=== PATIENT | male | born 1975 | race African-American/Black ===

== ENCOUNTER 2016-12-25 20:21 | Emergency (ER) | payer OTHER ==
[2016-12-25 20:27] VITALS: BP 147/91; PULSE 94; TEMP 98.4; BMI 30.6
[2016-12-25] MEDS ORDERED: ALBUTEROL SO4 2.5/IPRATROPIUM 0.5 INH SOL 3 ML VIAL.NEB. NEB ONE ×2 (20:57)
--- NOTE | 2016-12-25 21:24 | PDOC ---
History of Present Illness - General Chief Complaint: Shortness of Breath Stated Complaint: SHORTNESS OF BREATH Time Seen by Provider: 12/25/16 20:45 - History of Present Illness Initial Comments: 12/25/16 21:17 CHIEF COMPLAINT: HISTORY OF PRESENT ILLNESS: 41 yo M with hx of asthma and "reflux" presents [facility] with cough x 1 day and sneezing x 2 days. Patient denies any fever, chills, nausea, vomiting, diarrhea but states he is "very short of breath." PAST MEDICAL HISTORY: FAMILY HISTORY: Denies SOCIAL HISTORY:Denies tobacco, alcohol, illicit drug use. SURGICAL HISTORY: Denies ALLERGIES: No known drug allergies REVIEW OF SYSTEMS General/Constitutional: Denies fever or chills. Denies weakness, weight change. HEENT: Denies change in vision. Denies ear pain or discharge. Denies sore throat. Cardiovascular: Denies chest pain. Respiratory: Cough, wheezing, SOB x 1 day. Denies hemoptysis. Gastrointestinal: Denies nausea, vomiting, diarrhea. PHYSICAL EXAM General Appearance: Well-appearing, appropriately dressed. No apparent distress , no intoxication. HEENT: EOMI, PERRLA, normal ENT inspection, normal voice, TMs normal, pharynx normal. No conjunctival pallor. No photophobia, scleral icterus. Neck: Supple. Trachea midline. No tenderness, rigidity, carotid bruit, stridor , lymphadenopathy, or thyromegaly. Respiratory/Chest: Slight expiratory wheeze to LLL. No chest tenderness, respiratory distress, accessory muscle use. No crackles, rales, rhonchi, stridor , dullness. Cardiovascular: RRR. S1, S2. No JVD, murmur, bradycardia, tachycardia. Vascular Pulses: Dorsalis-Pedis (R): 2+, Dorsalis-Pedis (L): 2+ Gastrointestinal/Abdominal: Normal bowel sounds. Abdomen soft, non-distended. No tenderness or rebound tenderness. No organomegaly, pulsatile mass, guarding , hernia, hepatomegaly, splenomegaly. Lymphatic: No adenopathy, tenderness. Musculoskeletal/Extremities: Normal inspection. FROM of all extremities, normal capillary refill. Pelvis Stable. No CVA tenderness. No tenderness to extremities, pedal edema, swelling, erythema or deformity. Integumentary: Appropriate color, dry, warm. No cyanosis, erythema, jaundice or rash Neurologic: process plant operator II-XII intact. Fully oriented, alert. Appropriate mood/affect. Motor strength 5/5. No appreciable EOM palsy, facial droop or sensory deficit. Past History - Past Medical History Allergies/Adverse Reactions: Allergies Allergy/AdvReac Type Severity Reaction Status Date / Time No Known Allergies Allergy Verified 12/25/16 20:28 Home Medications: Ambulatory Orders Albuterol Sulfate Inhaler - [Ventolin HFA Inhaler -] 1 - 2 inh PO Q4H PRN #1 inhaler 12/25/16 Dextromethorphan HBr [Robitussin] 15 mg PO QID PRN #30 capsule 12/25/16 Loratadine [Claritin] 10 mg PO DAILY #30 tablet 12/25/16 Asthma: Yes (as a child) GI Disorders: Yes (acid reflux) HTN: Yes (non medicated) - Suicide/Smoking/Psychosocial Hx Smoking History: Current every day smoker Number of Cigarettes Smoked Daily: 2 Information on smoking cessation initiated: No *Physical Exam - Vital Signs Last Vital Signs Temp Pulse Resp BP Pulse Ox 98.4 F 94 H 18 147/91 96 12/25/16 20:23 12/25/16 20:23 12/25/16 20:23 12/25/16 20:23 12/25/16 20:23 ED Treatment Course - Medications Given in the ED: ED Medications Discontinued Medications Generic Name Dose Route Start Last Admin Trade Name Freq PRN Reason Stop Dose Admin Albuterol/Ipratropium 1 amp 12/25/16 20:57 12/25/16 21:02 Duoneb - NEB 12/25/16 20:58 1 amp ONCE ONE Administration *DC/Admit/Observation/Transfer Diagnosis at time of Disposition: Cold Asthma Qualifiers: Asthma severity: mild intermittent Asthma complication type: with acute exacerbation Qualified Code(s): J45.21 - Mild intermittent asthma with (acute) exacerbation - Discharge Dispostion Disposition: HOME Condition at time of disposition: Stable - Prescriptions Prescriptions: Loratadine [Claritin] 10 mg PO DAILY #30 tablet Dextromethorphan HBr [Robitussin] 15 mg PO QID PRN #30 capsule PRN Reason: Cough Albuterol Sulfate Inhaler - [Ventolin HFA Inhaler -] 1 - 2 inh PO Q4H PRN #1 inhaler PRN Reason: Short Of Breath/Wheezing - Patient Instructions Printed Discharge Instructions: DI for Asthma -- Adult, DI for Cough -- Adult Additional Instructions: Please take medications as prescribed and follow up with a primary care doctor for reevaluation of your asthma. If you develop any new shortness of breath, chest pain, fever, chills, vomiting, diarrhea, or any new or worsening symptoms , please return to the ER.
== END 2016-12-25 21:45 | disposition home or self-care (01) ==
LOC: JERFT 20:21
PROC: 3E0F7GC Introduction of Other Therapeutic Substance into Respiratory Tract, Via Natural or Artificial Opening (ICD-10-PCS; principal; 2016-12-25)
DX: J45.21 Mild intermittent asthma with (acute) exacerbation (principal); F17.210 Nicotine dependence, cigarettes, uncomplicated; K21.9 Gastro-esophageal reflux disease without esophagitis
CPT/HCPCS: 87804; 94640; 99281-25

== ENCOUNTER 2019-05-22 00:23 | Emergency (ER) | payer OTHER ==
[2019-05-22 00:32] VITALS: TEMP 97.8; BMI 28.2
--- NOTE | 2019-05-22 00:58 | PDOC ---
History of Present Illness - General Chief Complaint: Vomiting/Diarrhea Stated Complaint: VOMITING,DIARHHEA,BLACK STOOL History Source: Patient Exam Limitations: No Limitations - History of Present Illness Initial Comments: 05/22/19 01:00 pmhx": asthma GERD and restless leg syndrome N/V/D this morning. vomit x9. color of vomit yellow quanity getting smaller. Past History - Past Medical History Allergies/Adverse Reactions: Allergies Allergy/AdvReac Type Severity Reaction Status Date / Time No Known Allergies Allergy Verified 12/25/16 20:28 Home Medications: Ambulatory Orders Albuterol Sulfate Inhaler - [Ventolin HFA Inhaler -] 1 - 2 inh PO Q4H PRN #1 inhaler 12/25/16 Dextromethorphan HBr [Robitussin] 15 mg PO QID PRN #30 capsule 12/25/16 Loratadine [Claritin] 10 mg PO DAILY #30 tablet 12/25/16 Asthma: Yes (as a child) COPD: No GI Disorders: Yes (acid reflux) HTN: Yes (non medicated) - Psycho Social/Smoking Cessation Hx Smoking History: Never smoked Number of Cigarettes Smoked Daily: 2 *Physical Exam - Vital Signs Last Vital Signs Temp Pulse Resp BP Pulse Ox 97.8 F 98 H 18 153/98 99 05/22/19 00:29 05/22/19 00:29 05/22/19 00:29 05/22/19 00:29 05/22/19 00:29 Discharge - Follow up/Referral Referrals: Renata Pierce MD [Primary Care Provider] - - Patient Discharge Instructions - Post Discharge Activity
[2019-05-22] MEDS ORDERED: FAMOTIDINE 20 MG/50 ML IVPB 50 ML IVPB ONE (01:24)
[2019-05-22] MEDS ORDERED: ONDANSETRON 4 MG/2 ML VIAL IVPUSH ONE ×2 (01:24→04:16)
[2019-05-22] MEDS ORDERED: SODIUM CHLORIDE 0.9% 1000 ML INFUS.BAG IV ONE ×2 (01:24→04:16)
[2019-05-22] MEDS ORDERED: ONDANSETRON 4 MG/2 ML VIAL ONE ×2 (01:34→04:29)
[2019-05-22] MEDS ORDERED: FAMOTIDINE 20 MG/50 ML IVPB 20 MG/50 ML MG IVPB ONE (01:39)
--- NOTE | 2019-05-22 01:39 | PDOC ---
History of Present Illness - General Chief Complaint: Vomiting/Diarrhea Stated Complaint: VOMITING,DIARHHEA,BLACK STOOL Time Seen by Provider: 05/22/19 01:18 History Source: Patient Exam Limitations: No Limitations - History of Present Illness Initial Comments: 05/22/19 01:29 43M with a past medical history of asthma, restless leg syndrome, nausea, vomiting, diarrhea for two days. The patient states that hes had 8 to 12 pounds of bloody not bilious vomiting. And, he has had three episodes of watery diarrhea. She try taking Pepto-Bismol for the diarrhea, and then noticed that his last bout of diarrhea was darker than the prior. Denies any blood and his stool. The patient also admits to a syncopal episode today as he was going to the bathroom, felt lightheaded and diaphoretic, and had "vision closing" and syncopized. He denies a headache or midline spine tenderness. Past History - Past Medical History Allergies/Adverse Reactions: Allergies Allergy/AdvReac Type Severity Reaction Status Date / Time No Known Allergies Allergy Verified 12/25/16 20:28 Home Medications: Ambulatory Orders Albuterol Sulfate Inhaler - [Ventolin HFA Inhaler -] 1 - 2 inh PO Q4H PRN #1 inhaler 12/25/16 Dextromethorphan HBr [Robitussin] 15 mg PO QID PRN #30 capsule 12/25/16 Loratadine [Claritin] 10 mg PO DAILY #30 tablet 12/25/16 Ondansetron [Zofran *Odt*] 4 mg SL BID #14 od.tablet 05/22/19 Asthma: Yes (as a child) COPD: No GI Disorders: Yes (acid reflux) HTN: Yes (non medicated) - Psycho Social/Smoking Cessation Hx Smoking History: Never smoked Number of Cigarettes Smoked Daily: 2 Review of Systems - Review of Systems Able to Perform ROS?: Yes Comments:: 05/22/19 02:17 GENERAL/CONSTITUTIONAL: No fever or chills. No weakness. HEAD, EYES, EARS, NOSE AND THROAT: No change in vision. No ear pain or discharge. No sore throat. CARDIOVASCULAR: No chest pain, palpitations, or lightheadedness. RESPIRATORY: No cough, wheezing, shortness of breath, or hemoptysis. GASTROINTESTINAL: + for nausea, vomiting, diarrhea. No abdominal pain or constipation. GENITOURINARY: No dysuria, frequency, hematuria, or change in urination. MUSCULOSKELETAL: + for restless legs. No joint or muscle swelling or pain. No neck or back pain. SKIN: No rash or lesions. NEUROLOGIC: No headache, numbness, tingling, focal weakness, loss of consciousness, or change in strength/sensation. Is the patient limited Yakut proficient: No *Physical Exam - Vital Signs Last Vital Signs Temp Pulse Resp BP Pulse Ox 97.8 F 98 H 18 153/98 99 05/22/19 00:29 05/22/19 00:29 05/22/19 00:29 05/22/19 00:29 05/22/19 00:29 - Physical Exam 05/22/19 02:18 GENERAL: Well developed, well nourished. Awake and alert. No acute distress. HEENT: Normocephalic, atraumatic. Hearing grossly normal. Dry mucous membranes. PERRLA, EOMI. No conjunctival pallor. Sclera are non-icteric. NECK: Supple. Full ROM. No JVD. CARDIOVASCULAR: Regular rate and rhythm. No murmurs, rubs, or gallops. PULMONARY: No evidence of respiratory distress. Lungs clear to auscultation bilaterally. No wheezing, rales, or rhonchi. ABDOMINAL: Soft. Non-tender. Non-distended. No rebound or guarding. GENITOURINARY: No CVA tenderness bilaterally. MUSCULOSKELETAL: Normal range of motion at all joints. No bony deformities or tenderness. EXTREMITIES: No cyanosis. No clubbing. No edema. No calf tenderness or swelling. SKIN: Warm and dry. Normal capillary refill. No rashes. No jaundice. NEUROLOGICAL: Alert, awake, appropriate. Cranial nerves 2-12 grossly intact. Normal speech. Gait is normal without ataxia. PSYCHIATRIC: Cooperative. Good eye contact. Appropriate mood and affect. ED Treatment Course - LABORATORY CBC & Chemistry Diagram: 05/22/19 01:32 05/22/19 01:32 Medical Decision Making - Medical Decision Making 05/22/19 02:19 43M who presents with nausea, vomiting, diarrhea, who presents after having a syncopal episode. Treating symptomatically and reassessing. Pt well appearing. Syncopal episode at approx 2330. 05/22/19 04:14 CBC, CMP, Trop negative. EKG unremarkable. CTH pending. Pt did not have improvement on nausea w/ zofran. Reglan given w/ improvement. Pt has no focal neurologic deficits. Pt admitted to worsening of nausea. Will give zofran. 05/22/19 06:17 CTH negative. Pt tolerating PO and ambulating. Pending repeat troponin and d/c if negative. 05/22/19 06:43 Repeat trop negative. Will d/c with PCP f/u. Discharge - Discharge Information Problems reviewed: Yes Clinical Impression/Diagnosis: Nausea & vomiting Qualifiers: Vomiting type: unspecified Vomiting Intractability: unspecified Qualified Code( s): R11.2 - Nausea with vomiting, unspecified Condition: Good Disposition: HOME - Admission No - Additional Discharge Information Prescriptions: Ondansetron [Zofran *Odt*] 4 mg SL BID #14 od.tablet - Follow up/Referral Referrals: Renata Pierce MD [Primary Care Provider] - - Patient Discharge Instructions Patient Printed Discharge Instructions: Viral Gastroenteritis Additional Instructions: Your ER visit is not complete until your follow up with your primary care physician. Please follow up with your primary care physician in 1-2 days. Please return to the ER if you have any signs or symptoms of chest pain, shortness of breath, uncontrollable fever, chills, nausea, vomiting, numbness, tingling, or weakness in any part of your body, changes in vision, or slurred speech. Please take your medications as prescribed. Please return to the ER if symptoms persist, worsen, or new symptoms arise. - Post Discharge Activity
[2019-05-22 01:53] LABS: BASO % 0.5 % (0-2.0); EOS % 0.2 % (0-4.5); HEMATOCRIT 43.4 % (35.4-49); HEMOGLOBIN 15.2 GM/dL (11.7-16.9); LYMPH % 26.4 % (8-40); MCH 32.9 pg (25.7-33.7); MCHC 35.1 g/dl (32.0-35.9); MEAN CELL VOLUME 93.8 fl (80-96); MEAN PLT VOLUME 6.6 fl (7.5-11.1); MONO % 9.9 % (3.8-10.2); PLATELET COUNT 407 K/MM3 (134-434); RBC 4.63 M/mm3 (4.00-5.60); RDW 12.3 % (11.9-15.9); WHITE BLOOD COUNT 7.9 K/mm3 (4.0-10.0)
--- NOTE | 2019-05-22 02:10 | PDOC ---
Documentation entered by Mindy Farmer SCRIBE, acting as scribe for Dalia Reza MD. Dalia Reza MD: This documentation has been prepared by the chris, Mindy Farmer SCRIBE, under my direction and personally reviewed by me in its entirety. I confirm that the documentation accurately reflects all work, treatment, procedures, and medical decision making performed by me. Attending Attestation - Resident Resident Name: rEic Santana - ED Attending Attestation I have performed the following: I have examined & evaluated the patient, The case was reviewed & discussed with the resident, I agree w/resident's findings & plan - HPI HPI: 05/22/19 01:47 The patient is a 43-year-old male with a past medical history significant for asthma, restless leg syndrome who presents to the emergency department with nausea, vomiting, and diarrhea. The patient reports he had multiple episodes of NBNB vomiting, and 3 episodes of diarrhea. The patient reports he took some Pepto Bismol, following he had dark-colored stool diarrhea. Denies abdominal pain, chest pain, or shortness of breath. The patient reports on his way to the bathroom, he became diaphoretic and had a syncopal episode. Denies headache. - Physicial Exam PE: 05/22/19 06:43 Heart and lungs normal no flank pain HEENT normal Afebrile VSS no C/C/E abd soft NT ND +BS - Medical Decision Making 05/22/19 06:30 Patient Name: JADA JAY THIS IS A PRELIMINARY REPORT FROM [facility] DATE OF SERVICE: 2019-05-22 04:54:33 IMAGES: [id number] EXAM: HEAD CT WITHOUT CONTRAST HISTORY: Syncope and nausea COMPARISON: None. FINDINGS No acute intracranial abnormality. No hemorrhage. No visible infarct or mass. Osseous structures are intact. Note made of dental disease manifested by periapical lucency around a right posterior mandibular molar. There are also. Periapical lucencies around bilateral maxillary molars. Mucosal thickening right maxillary sinus 05/22/19 06:45 Labs normal; 2nd card enzyme normal Pt feels better at this time. Follow with PMD
[2019-05-22 02:20] LABS: ALBUMIN 3.8 g/dl (3.4-5.0); BILIRUBIN,TOTAL 0.8 mg/dL (0.2-1); BLOOD UREA NITROGEN 8.1 mg/dL (7-18); CALCIUM 9.6 mg/dL (8.5-10.1); POTASSIUM 3.6 mmol/L (3.5-5.1); TOT PROT 7.6 g/dl (6.4-8.2)
[2019-05-22] MEDS ORDERED: METOCLOPRAMIDE HCL INJECTION 10 MG/2 ML VIAL IVPB ONE (02:41)
[2019-05-22] MEDS ORDERED: METOCLOPRAMIDE HCL INJECTION 10 MG/2 ML VIAL ONE (02:45)
[2019-05-22 05:15] VITALS: BP 134/84; PULSE 64
--- NOTE | 2019-05-22 09:12 | EKG ---
Test Reason : Blood Pressure : / mmHG Vent. Rate : 070 BPM Atrial Rate : 070 BPM P-R Int : 158 ms QRS Dur : 094 ms QT Int : 398 ms P-R-T Axes : 056 032 027 degrees QTc Int : 429 ms NORMAL SINUS RHYTHM NORMAL ECG NO PREVIOUS ECGS AVAILABLE Confirmed by Dianne Beckford ([id number]) on 05/22/2019 9:11:44 AM Referred By: Confirmed By:Dianne Beckford
== END 2019-05-22 06:58 | disposition home or self-care (01) ==
LOC: JER 00:23
PROC: 3E033GC Introduction of Other Therapeutic Substance into Peripheral Vein, Percutaneous Approach (ICD-10-PCS; principal; 2019-05-22)
PROC: 3E033GC Introduction of Other Therapeutic Substance into Peripheral Vein, Percutaneous Approach (ICD-10-PCS; 2019-05-22)
DX: A08.4 Viral intestinal infection, unspecified (principal); B97.89 Other viral agents as the cause of diseases classified elsewhere; G25.81 Restless legs syndrome; Z87.09 Personal history of other diseases of the respiratory system
CPT/HCPCS: 36415; 70450-TC; 80053; 82550; 82553; 83690; 84484; 85025; 93005; 93010; 96365; 96375; 96376; 99285-25; J7030